=== PATIENT | female | born 1985 | race Caucasian/White ===

== ENCOUNTER 2020-07-01 11:14 | Emergency (ER) | payer OTHER, SELFPAY ==
[2020-07-01 11:15] VITALS: BP 142/43; PULSE 67; RESP 18; TEMP 35.5; O2SAT 99; BMI 25.6
--- NOTE | 2020-07-01 11:45 | RAD_ITS ---
STUDY: X-RAY - UNILATERAL RIBS ( RIGHT ) WITH CHEST REASON FOR EXAM: Female, 35 years old. pain since last day starting in back TECHNIQUE - RIBS: 2 view(s) of the ribs. TECHNIQUE - CHEST: Single frontal view of the chest. COMPARISON: 08/08/2016. FINDINGS - RIBS: Normal visualized ribs without a demonstrated fracture. FINDINGS - CHEST: The lungs are clear and expanded. There is no demonstrated pleural abnormality. Normal size heart. Normal mediastinum and mikaela. Normal visualized pulmonary arteries. Normal visualized aortic arch and descending thoracic aorta. Normal visualized thoracic spine. Normal visualized ribs, clavicles, and shoulders. There is no demonstrated abnormality of the visualized soft tissue structures of the upper abdomen. RAD/Ribs Uni Min 3V w/PA Chest IMPRESSION: RIBS: Normal x-ray examination of the ribs. CHEST: Normal x-ray examination of the chest. Electronically Signed: Earl Arnold MD at 12:12 EST , Service support ,
--- NOTE | 2020-07-01 12:10 | ED.VISSUMM ---
- ER Visit Summary Date of Service: 07/01/20 Chief Complaint: Back pain History of Present Illness: The patient is a 35 F who presents with back pain that has been getting worse over the past 6 days. Patient states the pain is over the mid thoracic area. Patient denies any trauma or injury. Patient describes the pain is sharp and burning. Patient states the pain is better with a heating pad. Patient does admit to some occasional numbness into her toes. Patient denies any radiation of the pain to her legs though. Patient denies any weakness. Patient denies any pain into her stomach. Patient denies any bowel or bladder changes. Patient denies any saddle anesthesia. Physical Examination: Vital signs are stable. Patient is afebrile. Patient is in no acute distress. Musculoskeletal exam reveals tenderness over the right mid thoracic area paraspinal muscles. There is no midline tenderness. There is no bony crepitance or step-off. Heart was regular rate and rhythm. Lungs are clear and equal bilaterally. Abdomen is soft. Bowel sounds are normal. There is no tenderness. Cranial nerves II through XII are intact. There are no focal motor or sensory deficits. Test Results: X-rays of the right ribs were obtained. There were 3 views. On my interpretation, there is no acute rib fracture. There is no pneumothorax. There is no acute cardiopulmonary process. Radiologist also interpreted the x-rays and agrees. Emergency Department Course and Treatment: Patient was advised that this is most likely muscular strain. Patient was given a prescription for Naprosyn. Patient was instructed to follow-up with her primary care physician in 5 to 7 days. Patient understood and was agreeable with the plan. All questions were answered. Disposition: Discharge home Impression: 1. Acute thoracic strain This note was generated with [employer] dictation software. It may contain incorrect words, spelling, and punctuation that were not noted in review of the chart prior to signing ED Disposition - Plan for ED Patient: Disposition: Home or Assisted Living Diagnosis: Acute thoracic myofascial strain Instructions: ED Back Sprain/Strain Prescriptions: Naproxen [Naprosyn] 500 mg PO BID PRN #20 tab Prescription Printed Referrals: Delano Colon [Primary Care Provider] -
== END 2020-07-01 12:58 | disposition home or self-care (01) ==
PROVIDERS: Emergency Provider Emergency Medicine; PCP Student in an Organized Health Care Education/Training Program
DX: S29.012A Strain of muscle and tendon of back wall of thorax, initial encounter (principal); X58.XXXA Exposure to other specified factors, initial encounter
CPT/HCPCS: 71101; 99282

== ENCOUNTER 2021-09-01 09:26 | Outpatient (CLI) | payer OTHER, SELFPAY ==
[2021-09-01 10:19] LABS: D-Dimer Quantitative (DVT/PE) < 0.27 FEU/ug/m (0.27-0.49)
== END 2021-09-01 23:59 | disposition home or self-care (01) ==
LOC: LABSPEC 09:27
PROVIDERS: PCP Student in an Organized Health Care Education/Training Program; Visit Provider Nurse Practitioner Acute Care
DX: R05.9 Cough, unspecified (principal)
CPT/HCPCS: 85379